=== PATIENT | female | born 1995 ===

== ENCOUNTER → 2024-02-13 14:57 | Outpatient (BNVA) | payer MEDICAID, SELFPAY | PROVIDERS: Family Provider Nurse Practitioner; Referring Provider Nurse Practitioner Family; Visit Provider Nurse Practitioner Women's Health | DX: N92.6 Irregular menstruation, unspecified (principal) | CPT/HCPCS: 81025 ==

== ENCOUNTER → 2024-05-15 14:10 | Outpatient (BNVA) | payer MEDICAID, SELFPAY | PROVIDERS: Family Provider Nurse Practitioner; Visit Provider Nurse Practitioner Women's Health | DX: E28.2 Polycystic ovarian syndrome (principal) | CPT/HCPCS: 84402; 84403 ==